=== PATIENT | male | born 1990 | race Caucasian/White ===

== ENCOUNTER 2017-10-27 17:18 | Emergency (ER) | payer OTHER ==
[2017-10-27] MEDS ORDERED: FLUT16SP19 NS (17:28)
[2017-10-27] MEDS ORDERED: BUDE10.2 INH (17:28)
--- NOTE | 2017-10-27 17:38 | ER Report ---
History and Physical Time Seen By MD: 17:33 Hx. of Stated Complaint: pt presents with hx of using lunge whip on a horse, and he dislocated shoulder while doing this. 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 Pt has hx of dislocation in this shoulder on May 15 of this year. Pt states that it feels like last time. Pt unable to elevate his shoulder on right. Pt has some tingling to all finger tips which he states happened on last dislocation. Pt last ate at noon today. no other trauma REVIEW OF SYSTEMS: Constitutional: No fever, no chills. Eyes: No discharge. ENT: No sore throat. Cardiovascular: No chest pain, no palpitations. Respiratory: No cough, no shortness of breath. Gastrointestinal: No abdominal pain, no vomiting. Genitourinary: No hematuria. Musculoskeletal: No back pain. Skin: No rashes. Neurological: No headache. Allergies: Coded Allergies: ibuprofen (Verified Allergy, Unknown, 10/27/17) Home Meds Reported Medications Fluticasone Prop 50 Mcg Ns (FLONASE 50 MCG NS) 16 Gm [place].susp, 1 SPRAY NS BID , BOT 10/27/17 Budesonide/Formoterol Fumarate (SYMBICORT 160-4.5 MCG INHALER) 10.2 Gm Inh, 10.2 GM INH, INH 10/27/17 Past Medical/Surgical History Pmhx: asthma, shoulder dislocation Pshx: neg Reviewed Nurses Notes: Yes Old Medical Records Reviewed: Yes Hx Substance Use Disorder: No Hx Alcohol Use: Yes (1-2 occ) Constitutional Vital Sign - Last 24 Hours 10/27/17 17:24 Temp 97.8 Pulse 73 Resp 20 B/P (MAP) 141/108 Pulse Ox 95 O2 Delivery Room Air Physical Exam General Appearance: The patient is alert, has no immediate need for airway protection and no signs of toxicity. Eyes: Pupils equal and round no pallor or injection, EOMI ENT: no pharyngeal erythema or exudates, Mucous membranes are moist Respiratory: There are no retractions, lungs are clear to auscultation. Cardiovascular: Regular rate and rhythm. pulses are equal and symmetrical Gastrointestinal: Abdomen is soft and non tender, no masses, bowel sounds normal, no guarding, no rigidity or rebound Neurological: Cranial nerves II-XII grossly intact, no sensory or motor loss Skin: Warm and dry, no rashes. Musculoskeletal: Neck is supple non tender, no vertebral tenderness + deformity RUE with humeral head out of glenoid socket on palpation; supination and pronation on right intact, sensation over deltiod on right; FROM on all other extremities DIFFERENTIAL DIAGNOSIS: After history and physical exam differential diagnosis was considered for dislocation, fracture Medical Decision Making EKG/Imaging Imaging juan sultana out of genoid fossa ED Course/Re-evaluation Clinical Indication for ER IV: IV Access ED Course 10/27/2017 6:01:51 pm Procedure: Procedural sedation. A pre-sedation evaluation was completed on the patient at 6pm. Patient is an appropriate candidate for procedural sedation. The risks of the sedation were discussed with the patient. A time out was completed. The patient was reevaluated immediately prior to initiation of sedation. The patient was sedated with what medications?. The patient was monitored with continuous pulse oximetry and campus monitor. There were no complications and no significant hypoxemia. I remained at the bedside for the sedation. The total time I spent in the procedural sedation was 15minutes. Post sedation evaluation: Patient was alert and cooperative, hemodynamically stable with appropriate respiratory status, temperature and pain control without ongoing nausea and vomiting. Procedure: Dislocation reduction: The shoulder was reduced in the usual fashion without complications. Post reduction the patient's neurovascular exam is normal. Post reduction x-ray demonstrates reduction of the joint to the anatomic position. The procedure was performed by myself. Decision to Disposition Date: Oct 27, 2017 Decision to Disposition Time: 18:02 Depart Departure Latest Vital Signs Vital Signs Date Time Temp Pulse Resp B/P (MAP) Pulse Ox O2 Delivery O2 Flow Rate FiO2 10/27/17 17:24 97.8 73 20 141/108 95 Room Air Impression: Primary Impression: Shoulder dislocation Condition: Improved Disposition: HOME OR SELF-CARE Referrals: [facility] New Scripts Hydrocodone Bit/Acetaminophen (HYDROCODON-ACETAMINOPHEN 5-325) 1 Each Tablet 1 EACH PO Q4-6H Y for PAIN, #10 TAB Prov: MARLONSAVANAH CASSIDY Harish DO 10/27/17 Patient Instructions: Shoulder Dislocation (GEN) Additional Instructions: Follow up with orthopedics for further evaluation of your shoulder. Keep in immoblizer. Ice and rest your shoulder. For severe pain I sent a script for hydrocodone (vicodin) to your pharmacy. If you are not having pain you do not need to fill the script. Problem Qualifiers Primary Impression: Shoulder dislocation Encounter type: initial encounter Laterality: right Qualified Codes: S43.004A - Unspecified dislocation of right shoulder joint, initial encounter SAVANAH BARRY DO Oct 27, 2017 17:37
[2017-10-27] MEDS ORDERED: MORPHINE 4 MG/ML SDV IVP ONE (17:45)
[2017-10-27] MEDS ORDERED: PROPOFOL EMUL 10MG/ML 20 ML VL IVP ONE (17:45)
--- NOTE | 2017-10-27 17:53 | RADIOLOGY IMAGING REPORT ---
FACILITY: [facility] PATIENT NAME: George Lewis : 1990 MR: [id number] V: [id number] EXAM DATE: ORDERING PHYSICIAN: SAVANAH BARRY TECHNOLOGIST: Location: [facility] Patient: George Lewis : 1990 Visit/Account:[id number] Date of Sevice: 10/27/2017 Exam type: SHOULDER MIN 2 VIEWS RIGHT History: working with a horse and felt shoulder pop Comparison: None. Findings: Two views the right shoulder demonstrate an anterior dislocation of the right humeral head with respe ct to the glenoid. No definite fracture is seen. IMPRESSION: 1. Anterior right shoulder dislocation with no definite fracture seen Report Dictated By: Maryellen Akins MD at 10/27/2017 5:49 PM Report E-Signed By: Maryellen Akins MD at 10/27/2017 5:49 PM WSN:[id number]
[2017-10-27] MEDS ORDERED: NS(*) 0.9% 1000 ML BAG 1,000 ML IV ONE (18:05)
[2017-10-27] MEDS ORDERED: LOR5/325 PO (18:05)
[2017-10-27] MEDS ORDERED: ACET/HYDROC 5/325MG TH ER ONLY 2 TAB/BOTTLE PO ONE (18:10)
[2017-10-27 18:50] VITALS: BP 108/77
--- NOTE | 2017-10-27 19:15 | RADIOLOGY IMAGING REPORT ---
FACILITY: [facility] PATIENT NAME: George Lewis : 1990 MR: [id number] V: [id number] EXAM DATE: ORDERING PHYSICIAN: SAVANAH BARRY TECHNOLOGIST: Location: [facility] Patient: George Lewis : 1990 Visit/Account:[id number] Date of Sevice: 10/27/2017 SHOULDER MIN 2 VIEWS RIGHT Indication: Shoulder pain. Dislocation. Comparison: 10/27/2017 at 5:26 PM Findings: 2 views of the right shoulder are submitted. There has been interval reduction of the right glenohumeral joint dislocation. Acromioclavicular join t is also in normal alignment. No definite fracture seen. IMPRESSION: 1. Interval reduction of the right shoulder glenohumeral joint dislocation. Report Dictated By: Ron Villa at 10/27/2017 7:10 PM Report E-Signed By: Ron Villa at 10/27/2017 7:12 PM WSN:[id number]
== END 2017-10-27 18:58 | disposition home or self-care (01) ==
LOC: ER 17:31
DX: S43.004A Unspecified dislocation of right shoulder joint, initial encounter (principal); J45.909 Unspecified asthma, uncomplicated; X50.3XXA Overexertion from repetitive movements, initial encounter; Z79.899 Other long term (current) drug therapy
CPT/HCPCS: 23650; 73030; 96361; 96374; 99283; J2270; J2704; J7030; L3982